=== PATIENT | female | born 1960 | race Caucasian/White ===

== ENCOUNTER 2023-08-08 17:31 | Inpatient (IN) | payer BC, SELFPAY ==
[2023-08-08] VITALS (8 sets, daily range): BP systolic 126–153; BP diastolic 65–81; BMI 34.1; BMI 33.3
[2023-08-08] MEDS: TYLENOL 650 MG PO ×3 (11:30→20:24)
[2023-08-08 12:17] LABS: % Basophils 0.4 % (0-2); % Immature Granulocytes 0.3 % (0-0.5); % Lymphocytes 8.9 % (20.5-51.1); % Monocytes 6.7 % (1.7-9.3); % Neutrophils 83.7 % (42.2-75.2); Absolute Basophils 0.1 10^3/uL (0-0.2); Absolute Lymphocytes 1.1 10^3/uL (1.2-3.4); Absolute Monocytes 0.8 10^3/uL (0.1-0.6); Absolute Neutrophils 10.2 10^3/uL (1.4-6.5); Hematocrit 40.6 % (37.0-47.0); Hemoglobin 13.7 g/dL (12.0-16.0); Mean Corp Hgb Conc. 33.7 g/dL (33.0-37.0); Mean Corpuscular Hgb 31.6 pg (27.0-31.0); Mean Corpuscular Volume 93.8 fL (81.0-99.0); Mean Platelet Volume 9.3 fL (7.4-10.4); Nucleated Red Blood Cells % 0 %; Platelet Count 299 10^3/uL (130-400); Red Blood Cell Count 4.33 10^6/uL (4.20-5.40); Red Cell Dist. Width 12.2 % (11.5-14.5); White Blood Cell Count 12.2 10^3/uL (4.8-10.8)
[2023-08-08 12:22] LABS: Lactic Acid 1.5 mmol/L (0.7-2.0)
[2023-08-08 12:28] LABS: ALT (SGPT) 21 U/L (0-35); AST (SGOT) 21 U/L (14-36); Albumin 4.2 g/dl (3.5-5.0); Alkaline Phosphatase 99 U/L (38-126); Blood Urea Nitrogen 11 mg/dl (7-17); Calcium 9.2 mg/dl (8.4-10.2); Carbon Dioxide 25 mmol/L (22-30); Chloride 104 mmol/L (98-107); Glucose 141 mg/dl (70-99); Sodium 135 mmol/L (135-145); Total Protein 6.8 g/dl (6.3-8.2); eGFR > 60.00
--- NOTE | 2023-08-08 14:55 | ED.GENMED ---
History of Present Illness
General
Chief Complaint: Fever
Source: patient
Exam Limitations: none
Time Seen by Provider: 08/08/23 14:27
Nursing documentation reviewed up to this point in time: agreed with
Travel History
Have you had any contact with someone who has COVID-19?: No
Do you have any symptoms of coronavirus? Fever > 100 degrees, chills, cough, shortness of breath, sore throat, loss of taste or smell, muscle aches, or headache?: No
History of Present Illness
History of Present Illness:
Patient is a 63-year-old female presents to the ER for evaluation. Patient started with left groin pain yesterday and woke up in the middle of the night with chills and a temperature of 104. She noticed redness to the area this morning. She was
seen by her family doctor and recommended to come to the ER for cellulitis. Patient presents to triage with a temperature 103.1.
Patient denies any other symptoms denies cough , runny nose sore throat. Patient is not a diabetic.
Past History
Past History
ED Past Medical History: HTN, Hypercholesterolemia and Hypothyroidism
ED Past Surgical History: Orthopedic (Bilateral knee's replaced), Tonsilectomy (and adnoids) and Other (Gastric Bypass)
Social History
Tobacco: Non-smoker
Alcohol: None
Personal:
Living: with family
Review of Systems
Review of Systems
Allergies reviewed?: Yes
All Other Systems: ROS reviewed and negative except as documented in HPI and ROS
Constitutional: Reports no symptoms and fever
Respiratory: Reports no symptoms
Cardiac: Reports no symptoms
Musculoskeletal: Reports other (left groin redness /pain )
Skin: Reports other (see above )
Psychiatric: Reports no symptoms
Phy Exam
General Physical Exam
General Presentation: no apparent distress
General age: appears stated age
General Skin: warm and dry
General Habitus: elderly
General Mental: alert
General Hydration: appears well hydrated
Cardiovascular Exam
Cardiovascular Exam: regular rate/rhythm, no murmur and normal peripheral pulses
Neurological Exam
Neurological Exam: alert and oriented x3
Musculoskeletal Exam
Musculoskeletal Exam: full ROM
Skin Exam
Skin Exam: normal color and warm/dry
Course
Orders/Labs/Results
Orders:
Orders
08/08/23 11:28
Acetaminophen [Tylenol] 650 mg .ROUTE .STK-MED ONE
08/08/23 11:46
Complete Blood Count/With Diff Urgent
Comprehensive Metabolic Panel Urgent
Lactic Acid Q4H
Comment: ON ICE, CANCEL 2ND ORDER IF FIRST LACTIC ACID LEVEL <2
Blood Culture Q30M
CODEY Source: Blood/Venous
Specimen Description:
Comment: FROM 2 SEPARATE SITES
Blood Culture Q30M
CODEY Source: Blood/Venous
Specimen Description:
Comment: FROM 2 SEPARATE SITES
Abnormal Lab Results
08/08/23
11:46
WBC 12.2 H 10^3/uL
(4.8-10.8)
MCH 31.6 H pg
(27.0-31.0)
Absolute Neuts (auto) 10.2 H 10^3/uL
(1.4-6.5)
Absolute Lymphs (auto) 1.1 L 10^3/uL
(1.2-3.4)
Absolute Monos (auto) 0.8 H 10^3/uL
(0.1-0.6)
Neutrophils % 83.7 H %
(42.2-75.2)
Lymphocytes % 8.9 L %
(20.5-51.1)
Glucose 141 H mg/dl
(70-99)
08/08/23 11:46
08/08/23 11:46
Vital Signs
Initial and Last Documented VS:
Initial Vital Signs
Temp Pulse Resp Pulse Ox
103.1 F H 75 16 98
08/08/23 11:21 08/08/23 11:21 08/08/23 11:21 08/08/23 11:21
Last Documented Vital Signs
Temp Pulse Resp BP Pulse Ox
103.1 F H 75 16 145/65 97
08/08/23 11:21 08/08/23 11:21 08/08/23 11:21 08/08/23 12:57 08/08/23 13:00
Childcare Attendant consulted with Physician
Childcare Attendant consulted with physician?: Yes
Name of Physician Consulted: [email or web address]
MDM/Problems Addressed
Differential Diagnosis Includes:
Not limited to cellulitis, abscess
MDM/Problems Addressed:
Symptoms are consistent with cellulitis. With rapid progression of symptoms(patient noticed pain yesterday followed by high fever today) will admit. Patient presents with a temperature of 103.1 here in the ER white count elevated 12. 2. lactic
1.5.
*Pulse Oximetry
Patient hypoxic: no
*Critical Care Note
Total Time (30-74mins, 75-104mins- exclusive of procedures): Not Applicable
ED Attending Note
-
Portions of this chart may have been created with voice recognition software.� Occasional wrong word or��sound alike� substitutions may have occurred due to the inherent limitations of voice recognition software.
Discharge Plan
Departure
Patient Disposition: Admit
Date of Disposition: 08/08/23
Time of Disposition: 15:19
Admit to: Med/Surg
Admit to doctor: cellulitis
Presentation/result/management discussed w/ accepting MD/DO: Hospitalist
Patient with high blood pressure during this ER visit?: Yes
Condition: Fair
Covid-19: Not Applicable
Discharge Problem:
Cellulitis of left thigh
Prescriptions:
No Action
cephalexin 500 MG capsule
500 mg PO QID Qty: 28 0RF
cephalexin 500 MG capsule
500 mg PO QID Qty: 39 0RF
Referrals:
Burak Quiroz MD [Family Provider] -
Interventions
Interventions:
*Risk Screen - Suicide Last Done: 08/08/23 13:03
*General Assessment Last Done: 08/08/23 13:03
*Neglect/Abuse Screening Last Done: 08/08/23 13:03
ED- Fall Risk Assessment Last Done: 08/08/23 13:08
*ED COVID-19 Vaccine History Last Done: 08/08/23 13:08
ED- Neurological Assessment Last Done: 08/08/23 13:03
ED-Skin Assessment Last Done: 08/08/23 13:03
[2023-08-08] MEDS: MOTRIN 600 MG PO (15:18)
[2023-08-08] MEDS: ANCEF 5 IV ×2 (15:52→16:36)
--- NOTE | 2023-08-08 16:12 | HPS.HSE ---
Addendum entered and electronically signed by Dilan Saha MD 08/08/23 18:18:
I saw and examined the patient.
The BUSINESS ANALYTICS SPECIALIST or PA's note was reviewed and I agree with the note.
Comment:
63F Obesity HTN HLD Hypothyroidism recurrent cellulitis here with new onset Lt thigh erythema tenderness pain near groin with associate high fever night sweats/chills 1 day duration referred to ED for evaluation by primary care provider. Possible
sepsis with fever 103.1 mild leukocytosis 12.2 Denies nausea vomiting diarrhea constipation dysuria sob coughing sneezing recent insect bites or trauma.
Physical Exam
General:�appears comfortable at rest
HEENT:�Anicteric and Moist mucous membranes
Respiratory:�Clear and Non Labored Respirations
Cardiac:�S1/S2 and Regular Rhythm
GI:�Soft and Non Tender
Musculoskeletal:�No Clubbing, No Cyanosis and No Edema
Skin:�erythema upper left thigh near groin area tender no fluctuance noted
Neuro:�AOx3
Psych:�Calm
#Sepsis (fever leukocytosis) Cellulitis no lactic acidosis or hypotension
#High grade fever
#HTN
#HLD
#Hypothyroidism
Tylenol prn
Cooling blanket if necessary
Morphine prn pain control
follow cultures
empiric vanc cefazolin
ID eval
check CT LLE w/ IV contrast
Original Note:
Family Physician
-
Family Physician: Burak Quiroz
Chief Complaint
-
Fever with left upper thigh redness
History of Present Illness
Patient is 63-year-old female past medical history of hypertension, dyslipidemia, hypothyroidism and recurrent cellulitis who presents with fever and redness of the left upper thigh. Patient notes yesterday she developed pain in the left upper
thigh/groin area. Yesterday she did not note any redness. However, last evening she had significant sweats and chills which kept her up most of the night. This morning she noted redness of the left upper thigh which prompted her to see her
primary care provider this morning. At her PCPs office she was noted to have fever of 104 �F, and he sent her to the emergency department for evaluation. Patient reports about 3�4 episodes of cellulitis a year. She admits to prior hospitalization
due to cellulitis, but notes last hospitalization was over 10 years ago.
Medical History
Past Medical History
Past Medical History: Reports Other
Additional Past Medical History:
Essential Hypertension
Dyslipidemia
Hypothyroidism
Depression
Past Surgical History: Reports Other
Additional Past Surgical History:
Tonsillectomy
Gastric Bypass
Bilateral Knee Replacements
Social History
Tobacco: Non-smoker
Alcohol: None
Drug: None
Personal:
Family History
Family History: Not pertinent
Allergies / Home Medications
Allergies reflects when Allergies were last updated in [facility].
Home Medications with original date entered in [facility]
Allergy/Medication List:
Allergies
Allergy/AdvReac Type Severity Reaction Status Date / Time
No Known Allergies Allergy Verified 08/08/23 11:21
Home Medications
atorvastatin 20 mg tablet 20 mg PO DAILY 08/08/23
citalopram 20 mg tablet 20 mg PO DAILY 08/08/23
levothyroxine 200 mcg tablet 200 mcg PO DAILY 08/08/23
multivitamin 1 tab PO DAILY 08/08/23
valsartan 160 mg-hydrochlorothiazide 25 mg tablet 1 tab PO DAILY 08/08/23
Review of Systems
-
A 12 point ROS was completed and negative except as noted: Yes
Constitutional: Reports Fever and Chills
Respiratory: Denies Cough or Trouble Breathing
Abdomen/GI: Denies Abdominal Pain, Nausea, Vomiting or Diarrhea
Skin: Reports See HPI
Physical Exam
Vital Signs
Vital Signs
Temp Pulse Resp BP Pulse Ox
102.8 F H 75 16 137/68 95
08/08/23 15:20 08/08/23 11:21 08/08/23 11:21 08/08/23 15:00 08/08/23 16:00
Physical Exam
General: Comfortable and Conversant
HEENT: Anicteric and Moist mucous membranes
Respiratory: Clear and Non Labored Respirations
Cardiac: S1/S2 and Regular Rhythm
GI: Soft and Non Tender
Rectal: Deferred by Provider
Musculoskeletal: No Clubbing, No Cyanosis and No Edema
Skin: Warm, Dry and Other (Area of erythema noted in the left upper thigh which is warm to touch; No fluctuance noted )
Neuro: Awake, Alert and Nonfocal/grossly intact
Psych: Calm
Laboratory Results
-
08/08/23 11:46
08/08/23 11:46
Laboratory Results
Lactic Acid Cancelled 08/08/23 15:30
Total Bilirubin 1.0 mg/dl (0.2-1.3) 08/08/23 11:46
AST 21 U/L (14-36) 08/08/23 11:46
ALT 21 U/L (0-35) 08/08/23 11:46
Alkaline Phosphatase 99 U/L (38-126) 08/08/23 11:46
Data Reviewed
-
Lab Data: Labs Reviewed by me
Impression/Plan
-
Sepsis secondary to Left Upper Thigh Cellulitis
-Consult Infectious Disease
-Check Lower Ext CT
-Continue Ancef
-Add Vancomycin - Check MRSA screen
-Await blood cultures
Essential Hypertension
-Continue valsartan
-Hold HCTZ in setting of sepsis
Dyslipidemia
-Continue atorvastatin
Hypothyroidism
-Continue levothyroxine
Depression
-Continue citalopram
DVT proph: Lovenox
Code Status: Full Code
[2023-08-08] MEDS: MORPHINE SULFATE 2 MG IV ×2 (16:26→22:04)
--- NOTE | 2023-08-08 19:21 | CON.ID ---
Consultation
-
Date/Time Consultation Requested: 08/08/2023 1557
Date/Time Consultation Performed: 08/08/2023 1900
Requesting Provider: Ila Hernandez
Performing Provider: Dr. Padilla
Reason for Consultation: left Inguinal cellulitis
Chief Complaint / Past History
History of Present Illness
Maricel Barbosa is a 63-year-old female being evaluated at the request of Ila Hernandez regarding left inguinal cellulitis. History is obtained from chart review, along with patient interview. The patient has a significant past medical history
of obesity and hypertension and reports that she was in her usual state of health until yesterday morning when she developed acute onset of left groin pain / left proximal anterior medial thigh pain. Over the next 24 hours the area developed
progressive erythema. She reached out to her PCP, and he referred her to the emergency room for further evaluation. She notes that she developed a fever to 105 at home, and she was found to have a temperature to 103.1 here in the ER.
At this time she notes ongoing discomfort in the area, probably due to the erythema has gone down to some degree. She denies any trauma to the area. She denies any redness or pain more distal on the left leg or on the right leg. She denies any
abdominal pain.
Past History
Additional Past Medical History:
HTN
Dyslipidemia
Hypothyroidism
Additional Past Surgical History:
Bilateral knee replacement
Gastric bypass
Breast reduction
Allergy History:
No Known Allergies Allergy (Verified 08/08/23 11:21)
Medications Reviewed: Yes
Current Antibiotics:
Cefazolin
Social History
Tobacco: Non-Smoker
Alcohol: None
Drug: None
Personal:
Living: With Family
Employment: Employed
Family History
Family History: Not Pertinent
Review of Systems
Vital Signs
Temp Pulse Resp BP Pulse Ox
100.1 F 54 16 127/76 95
08/08/23 17:30 08/08/23 16:29 08/08/23 16:29 08/08/23 16:30 08/08/23 16:45
Physical Exam
Physical Exam
Constitutional: No Acute Distress, Comfortable and Non-toxic
Head: Normocephalic
Eyes: Pupils Equal, Pupils Round, No Conjunctival Hemorrhage and Sclera Anicteric
Oral: No Thrush and No Ulcers
Cardiovascular: Regular Rate and S1/S2; Negative S3/S4 or Murmur
Pulmonary: Clear; Negative Wheezes, Rales or Rhonchi
Gastrointestinal: Soft, Non Tender, Non Distended and Normal Bowel Sounds
Extremities: Edema and Other (Left proximal anterior thigh with erythema. A more central area of induration palpated which was quite tender to touch.); Negative Cyanosis
Musculoskeletal: Negative Joint Swelling or Joint Effusion
Skin: Warm and Dry; Negative Rash or Jaundice
Neurological: Awake, Alert and Oriented
Psychological: Calm
Lab / Diagnostic Study Results
08/08/23 11:46
08/08/23 11:46
Abs Immat Gran (auto) 0.0 10^3/uL (0-0.05) 08/08/23 11:46
Absolute Neuts (auto) 10.2 10^3/uL (1.4-6.5) H 08/08/23 11:46
Absolute Lymphs (auto) 1.1 10^3/uL (1.2-3.4) L 08/08/23 11:46
Absolute Monos (auto) 0.8 10^3/uL (0.1-0.6) H 08/08/23 11:46
Absolute Basos (auto) 0.1 10^3/uL (0-0.2) 08/08/23 11:46
Immature Gran % 0.3 % (0-0.5) 08/08/23 11:46
Neutrophils % 83.7 % (42.2-75.2) H 08/08/23 11:46
Lymphocytes % 8.9 % (20.5-51.1) L 08/08/23 11:46
Monocytes % 6.7 % (1.7-9.3) 08/08/23 11:46
Eosinophils % 0.0 % (0-6) 08/08/23 11:46
Basophils % 0.4 % (0-2) 08/08/23 11:46
Lactic Acid Cancelled 08/08/23 15:30
Microbiology Results
Micro:
08/08/23 16:11 MRSA Screen - Pending
Nose
08/08/23 11:46 Blood Culture - Pending
Blood/Venous
08/08/23 11:46 Blood Culture - Pending
Blood/Venous
Imaging:
08/08/2023 CT left lower extremity: Official report pending. Subcutaneous inflammation noted proximal anterior thigh. Question subcutaneous nodule versus inflamed lymph node.
Assessment / Plan
Left lower extremity cellulitis
Fever
Leukocytosis
HTN
Dyslipidemia
Hypothyroidism
Recommendations:
Continue with cefazolin.
Monitor pending blood cultures.
Monitor white count and temperature curve.
K-pad to the area.
Monitor for clinical improvement.
Care Review
Plan reviewed with: Physician (Hospitalist Service)
[2023-08-08] MEDS: NSS 1000 IV (20:24)
[2023-08-08] MEDS: LOVENOX 40 MG SC (20:24)
--- NOTE | 2023-08-08 21:00 | PTCARENOTE ---
PT IS AAOX3, pt reports left upper thigh/groin area pain is 7/10. its warm, red, edema, and tender to touch. marked cellulitis w/ pen. pt is given prn pain meds- see SEP. pt is oriented to room w/ call morales in reach.
--- NOTE | 2023-08-08 21:02 | PHA.VAN.IN ---
Assessment
- Assessment
Renal Function: Appears similar to baseline
Concomitant Antimicrobials: ANCEF
- Previous Dosing Experience
Previous Regimen: NONE
AUC Dosing Plan
- Dosing Variables
Dosing Weight (kg): 93.6
Dosing CrCl (ml/min): 100
Vd coefficient (L/kg): 0.6
- Empiric Dosing
Initial / Loading Dose: 2GM
Maintenance Regimen: 1250MG IV Q12H
Estimated AUC (mcg*h/mL): 543
Estimated Peak (mcg*h/mL): 34.3
Estimated Trough (mcg/ml): 13.7
Estimated Half Life (H): 7.9
Pharmacokinetics Vancomycin I
- -
Patient Age: 63
Patient Sex: Female
Vancomycin Day #: 1
Indication: Skin And Soft Tissue (THIGH CELLULITIS/SEPSIS)
Requesting Provider: CARLA
Height / Weight:
Height 5 ft 6 in
Actual Weight 93.638 kg
Pertinent Past Medical History: RECURRENT CELLULITIS
- Vital Signs / Lab Results
Temp Pulse Resp BP Pulse Ox
98.0 F 70 16 126/81 97
08/08/23 20:04 08/08/23 20:04 08/08/23 20:04 08/08/23 20:04 08/08/23 20:04
Lab Results - Hematology
08/08/23
11:46
WBC 12.2 H
Lab Results - Chemistry
08/08/23
11:46
BUN 11
Creatinine 0.6
Albumin 4.2
08/08/23 08/08/23
11:46 15:30
Lactic Acid 1.5 Cancelled
[2023-08-08] MEDS: VANCOCIN 540 MG IV (21:53)
[2023-08-08] MEDS: ANCEF 10 IV (23:27)
[2023-08-09] MEDS: MORPHINE SULFATE 2 MG IV (02:50)
[2023-08-09] MEDS: TYLENOL 650 MG PO ×2 (03:32→11:46)
[2023-08-09] MEDS: VANCOCIN 275 MG IV ×2 (05:09→18:13)
[2023-08-09] MEDS: NSS 1000 IV (05:09)
[2023-08-09] MEDS: SYNTHROID 200 MCG PO (05:10)
[2023-08-09 06:40] LABS: Hematocrit 33.9 % (37.0-47.0); Hemoglobin 11.6 g/dL (12.0-16.0); Mean Corp Hgb Conc. 34.2 g/dL (33.0-37.0); Mean Corpuscular Hgb 31.5 pg (27.0-31.0); Mean Corpuscular Volume 92.1 fL (81.0-99.0); Platelet Count 225 10^3/uL (130-400); Red Blood Cell Count 3.68 10^6/uL (4.20-5.40); Red Cell Dist. Width 12.5 % (11.5-14.5); White Blood Cell Count 13.7 10^3/uL (4.8-10.8)
[2023-08-09 07:00] VITALS: BP 147/82
[2023-08-09 07:14] LABS: Blood Urea Nitrogen 12 mg/dl (7-17); Calcium 8.4 mg/dl (8.4-10.2); Carbon Dioxide 21 mmol/L (22-30); Chloride 104 mmol/L (98-107); Estimated Creatinine Clearance 109 ml/min; Glucose 113 mg/dl (70-99); Potassium 3.3 mmol/L (3.5-5.1); Sodium 134 mmol/L (135-145); eGFR > 60.00
--- NOTE | 2023-08-09 07:42 | W.PN.HOSP.TC ---
Today's Communication/Plan
-
antibiotics
fever control
blood pressure control
fall precautions
PT
Assessment / Plan
Assessment / Plan
Physical Exam
General:�appears comfortable at rest
HEENT:�Anicteric and Moist mucous membranes
Respiratory:�Clear and Non Labored Respirations
Cardiac:�S1/S2 and Regular Rhythm
GI:�Soft and Non Tender
Musculoskeletal:�No Clubbing, No Cyanosis and No Edema
Skin:�erythema upper left thigh near groin area tender no fluctuance noted
Neuro:�AOx3
Psych:�Calm
63F Obesity HTN HLD Hypothyroidism recurrent cellulitis here with new onset Lt thigh erythema tenderness pain near groin with associate high fever night sweats/chills 1 day duration referred to ED for evaluation by primary care provider.� Possible
sepsis with fever 103.1 mild leukocytosis 12.2� Denies nausea vomiting diarrhea constipation dysuria sob coughing sneezing recent insect bites or trauma.�
Sepsis secondary to Left Upper Thigh Cellulitis
Fever
-Consult Infectious Disease appreciated azithromycin added, bartonella serology pending, patient lives with 3 cats
-Left Lower Ext CT, Groin US appreciated
-Continue Ancef Vancomycin - Check MRSA screen
-follow blood cultures
-Tylenol prn, ice packs, cooling blanket if necessary
Essential Hypertension
-Continue valsartan
-Hold HCTZ
Dyslipidemia
-Continue atorvastatin
Hypothyroidism
-Continue levothyroxine
Depression
-Continue citalopram
DVT proph: Lovenox
Code Status: Full Code
Fall Precautions
PT eval
I spent a total of 55 minutes with the patient or on the floor. More than 50% of this time involved counseling and coordination of care.
Anticipated Discharge: 24 - 48 hours
Subjective/Interval History
-
Date of Service: August 09, 2023
General malaise fever continues to endorse tenderness left upper thigh groin area.
Objective Data
-
Labs:
Laboratory Results
08/09/23
06:31
WBC 13.7 H
Hgb 11.6 L
Hct 33.9 L
Plt Count 225 D
Sodium 134 L
Potassium 3.3 L
Chloride 104
Carbon Dioxide 21 L
BUN 12
Creatinine 0.5 L
Glucose 113 H
Calcium 8.4
Vital Signs:
Vital Signs
Temp Pulse Resp BP Pulse Ox
99.8 F 70 16 153/75 96
08/09/23 05:15 08/08/23 23:00 08/08/23 23:00 08/08/23 23:00 08/08/23 23:52
I&O
08/08/23 08/09/23 08/10/23
06:59 06:59 06:59
Intake Total 3455 / 3455
Balance 3455 / 3455
[2023-08-09] MEDS: CELEXA 20 MG PO (08:10)
[2023-08-09] MEDS: LIPITOR 20 MG PO (08:10)
[2023-08-09] MEDS: DIOVAN 160 MG PO (08:10)
[2023-08-09] MEDS: ANCEF 10 IV ×2 (08:11→16:38)
--- NOTE | 2023-08-09 08:19 | PTCARENOTE ---
PT AOX3, PAIN TO L GROIN 08/23 AT THIS TIME. RE, WARM, MARKED. C/O LEFT HEEL PAIN, FOAM PLACED AND HEELS ELEVATED. DOES NOT WANT PAIN MED- . PT DENIES SOB, N/V. RESTING, CALL BRICE IN REACH
--- NOTE | 2023-08-09 08:43 | PHA.VAN.FU ---
Vancomycin Assessment / Plan
- Assessment
Renal Function: Stable
WBC's are: Trending Up
In the past 24 hrs, patient has been: Febrile (102.4F)
Concomitant Antimicrobials: ancef
- Dosing Plan
Continue: 1250mg q12h
- Monitoring Plan
No level(s) ordered at this time: consider for tomorrow
- Follow Up
Pharmacy will continue to follow.
Vancomycin Follow UP
- -
Patient Age: 63
Patient Sex: Female
Vancomycin Day #: 2
Indication: Skin And Soft Tissue (THIGH CELLULITIS/SEPSIS)
Requesting Provider: CARLA
Height / Weight:
Height 5 ft 6 in
Actual Weight 93.638 kg
Pertinent Past Medical History: RECURRENT CELLULITIS
- Vital Signs / Lab Results
Temp Pulse Resp BP Pulse Ox
98.7 F 77 18 147/82 96
08/09/23 07:00 08/09/23 07:00 08/09/23 07:00 08/09/23 07:00 08/09/23 07:00
Lab Results - Hematology
08/08/23 08/09/23
11:46 06:31
WBC 12.2 H 13.7 H
Lab Results - Chemistry
08/08/23 08/09/23
11:46 06:31
BUN 11 12
Creatinine 0.6 0.5 L
Estimated Creat Clear 109
Albumin 4.2
08/08/23 08/08/23
11:46 15:30
Lactic Acid 1.5 Cancelled
[2023-08-09] MEDS: KCL 40 MEQ PO (09:53)
--- NOTE | 2023-08-09 12:27 | W.PN.ID1 ---
Date of Service
Date of Service: August 09, 2023
Today's Communication
Continue antibiotics. See below�
Assessment / Plan
Left lower extremity cellulitis
Fever
Leukocytosis
Focal lymphadenopathy
HTN
Dyslipidemia
Hypothyroidism
Recommendations:
Patient reports that she has 3 cats at home, raising the possibility of Bartonella infection.
Will add Azithromycin 500 mg p.o. daily for 5 days. Will get baseline EKG as patient is also on citalopram.
Check Bartonella serology.
Continue with cefazolin.
Monitor pending blood cultures.
Monitor white count and temperature curve.
K-pad to the area.
Monitor for clinical improvement.
Chief Complaint
-: Cellulitis
Subjective / Review of Systems
Patient seen and examined. Erythema of the left proximal thigh ongoing.
Vital Signs / Physical Exam
Vital Signs
Vital Signs
Temp Pulse Resp BP Pulse Ox
98.7 F 77 18 147/82 96
08/09/23 07:00 08/09/23 07:00 08/09/23 07:00 08/09/23 07:00 08/09/23 07:00
Physical Exam
Constitutional: No Acute Distress, Comfortable and Non-toxic
Eyes: Sclera Anicteric
Pulmonary: Non Labored
Extremities: Other (Left proximal thigh with ongoing erythema. Palpable lymphadenopathy. Tenderness ongoing.)
Neurological: Awake and Alert
Psychological: Calm
Objective Data
Lab Data
Lab Results
08/09/23 06:31
08/09/23 06:31
Estimated Creat Clear 109 ml/min 08/09/23 06:31
Lactic Acid Cancelled 08/08/23 15:30
Total Bilirubin 1.0 mg/dl (0.2-1.3) 08/08/23 11:46
AST 21 U/L (14-36) 08/08/23 11:46
ALT 21 U/L (0-35) 08/08/23 11:46
Alkaline Phosphatase 99 U/L (38-126) 08/08/23 11:46
Most recent labs reviewed.
Micro Results:
08/08/23 11:46 Blood Culture - Preliminary
Blood/Venous No Growth in 24 hours- Final report to follow
08/08/23 11:46 Blood Culture - Preliminary
Blood/Venous No Growth in 24 hours- Final report to follow
08/08/23 16:11 MRSA Screen - Pending
Nose
Imaging:
08/08/2023 CT left lower extremity: Moderate increased density in the subcutaneous tissues of the anterior medial proximal left thigh and groin area. No focal fluid collection to suggest abscess. At least 3 moderate-sized lymph nodes noted. All
have a normal rim and fatty center. The largest measures 4 cm in maximum dimension.
--- NOTE | 2023-08-09 12:46 | CM ---
Patient seen bedside, initial assessment. Patient reports she lives with her and daughters in a ranch style home, denies DME. Patient reports she has had VN in the past, unsure with who, denies SNF. Patient confirms PCP Dr. Quiroz or anyone
through [facility], pharmacy [facility] [place]. CM will continue to follow for discharge planning, watch for PT/OT eval.
Plan; home no needs vs VN.
[2023-08-09] MEDS: ZITHROMAX 500 MG PO (12:51)
[2023-08-09] MEDS: MOTRIN 400 MG PO (12:51)
[2023-08-09 13:00] VITALS: BP 149/68
[2023-08-09 15:00] VITALS: BP 123/62
--- NOTE | 2023-08-09 16:16 | PTCARENOTE ---
Assumed care of pt from previous nurse. pt with mild discomfort to left groin, tolerable. Pt fever treated with tylenol and motrin, fan and ice packs with positive results. Pt call morales is within reach, pt rings ann. will cont to monitor.
[2023-08-09] MEDS: LOVENOX 40 MG SC (18:13)
[2023-08-09 19:38] VITALS: BP 142/61
[2023-08-09 23:21] VITALS: BP 151/74
[2023-08-10] MEDS: ANCEF 10 IV ×4 (00:03→23:42)
[2023-08-10] MEDS: TYLENOL 650 MG PO ×3 (01:10→23:42)
[2023-08-10 03:51] VITALS: BMI 33.3
[2023-08-10] MEDS: VANCOCIN 275 MG IV (05:18)
[2023-08-10] MEDS: SYNTHROID 200 MCG PO (06:04)
[2023-08-10 06:32] LABS: Hematocrit 36.1 % (37.0-47.0); Mean Corp Hgb Conc. 33.2 g/dL (33.0-37.0); Mean Corpuscular Hgb 31.7 pg (27.0-31.0); Mean Corpuscular Volume 95.3 fL (81.0-99.0); Mean Platelet Volume 9.7 fL (7.4-10.4); Platelet Count 226 10^3/uL (130-400); Red Blood Cell Count 3.79 10^6/uL (4.20-5.40); Red Cell Dist. Width 12.4 % (11.5-14.5)
[2023-08-10 06:56] LABS: Blood Urea Nitrogen 9 mg/dl (7-17); Calcium 8.8 mg/dl (8.4-10.2); Carbon Dioxide 20 mmol/L (22-30); Chloride 107 mmol/L (98-107); Estimated Creatinine Clearance 109 ml/min; Glucose 120 mg/dl (70-99); Magnesium 2.1 mg/dl (1.6-2.3); Potassium 3.5 mmol/L (3.5-5.1); Sodium 135 mmol/L (135-145); eGFR > 60.00
[2023-08-10 07:00] VITALS: BP 148/85
--- NOTE | 2023-08-10 07:27 | W.PN.HOSP.TC ---
Today's Communication/Plan
-
cont abx cefazolin azithromycin
discontinue vancomycin
Fever control tylenol ibuprofen ice packs, consider cooling blanket if refractory
follow cultures, serology
Assessment / Plan
Assessment / Plan
Physical Exam
General:�appears comfortable at rest
HEENT:�Anicteric and Moist mucous membranes
Respiratory:�Clear and Non Labored Respirations
Cardiac:�S1/S2 and Regular Rhythm
GI:�Soft and Non Tender
Musculoskeletal:�No Clubbing, No Cyanosis and No Edema
Skin:�erythema upper left thigh near groin area tender no fluctuance noted, light erythema RUE where Vancomycin infiltrated will cont to monitor
Neuro:�AOx3
Psych:�Calm
63F Obesity HTN HLD Hypothyroidism recurrent cellulitis here with new onset Lt thigh erythema tenderness pain near groin with associate high fever night sweats/chills 1 day duration referred to ED for evaluation by primary care provider.� Possible
sepsis with fever 103.1 mild leukocytosis 12.2� Denies nausea vomiting diarrhea constipation dysuria sob coughing sneezing recent insect bites or trauma.�
Sepsis secondary to Left Upper Thigh Cellulitis
Fever
-Consult Infectious Disease appreciated azithromycin added, bartonella serology pending, patient lives with 3 cats though patient denies every being scratched by her cats and also reports that they are all de-clawed (patient upset at the notion that
her cats may have caused her illness, assured that this was only a theory not a certainty at this time)
-Left Lower Ext CT, Groin US appreciated cellulitis with associated lymphadenopathy
-Continue Ancef, MRSA screen neg Vancomycin discontinued
-follow blood cultures NGTD
-Tylenol prn, ice packs, cooling blanket if necessary
Vancomycin infiltration right arm prior to discontinuation 08/10
light rash swelling noted in area s/p Hylenex once administered
monitor
Essential Hypertension
-Continue valsartan
-Hold HCTZ given concern sepsis
Dyslipidemia
-Continue atorvastatin
Hypothyroidism
-Continue levothyroxine
Depression
-Continue citalopram
DVT proph: Lovenox
Gi PPx Protonix
Code Status: Full Code
Fall Precautions
PT/OT eval appreciated no needs
I spent a total of 55 minutes with the patient or on the floor. More than 50% of this time involved counseling and coordination of care.
Anticipated Discharge: 24 - 48 hours
Subjective/Interval History
-
Date of Service: August 10, 2023
Continues to spike fevers though fewer and farther between, manageable with prn Tylenol Ibuprofen Ice packs. Erythema left thigh groin area decreased from demarcation
Objective Data
-
Labs:
Laboratory Results
08/10/23
06:21
WBC 14.0 H
Hgb 12.0
Hct 36.1 L
Plt Count 226
Sodium 135
Potassium 3.5
Chloride 107
Carbon Dioxide 20 L
BUN 9
Creatinine 0.4 L
Glucose 120 H
Calcium 8.8
Vital Signs:
Vital Signs
Temp Pulse Resp BP Pulse Ox
99.2 F 80 14 151/74 95
08/10/23 02:00 08/09/23 23:21 08/09/23 23:21 08/09/23 23:21 08/09/23 23:21
I&O
08/09/23 08/10/23 08/11/23
06:59 06:59 06:59
Intake Total 3455 / 3455
Balance 3455 / 3455
--- NOTE | 2023-08-10 07:36 | PTCARENOTE ---
Notified provider of patient's infiltrated vanco in her RAC, see MAR
--- NOTE | 2023-08-10 07:38 | VATNOTE ---
on rounds noted right AC iv site with vanco infiltrate. Warm compress applied. Hyalouronidase ordered by MD per policy. Will monitor closely. Primary RN made aware.
[2023-08-10] MEDS: HYLENEX 30 UNITS SC ×5 (08:00)
[2023-08-10] MEDS: CELEXA 20 MG PO (09:59)
[2023-08-10] MEDS: DIOVAN 160 MG PO (09:59)
[2023-08-10] MEDS: ZITHROMAX 500 MG PO (09:59)
[2023-08-10] MEDS: LIPITOR 20 MG PO (10:00)
--- NOTE | 2023-08-10 11:07 | PTCARENOTE ---
Notified provider of patient's temperature. Approximately one hour after receiving Tylenol her oral reading is 101.1
[2023-08-10] MEDS: MOTRIN 400 MG PO (11:28)
[2023-08-10] MEDS: PROTONIX 40 MG PO (11:28)
--- NOTE | 2023-08-10 11:31 | PTCARENOTE ---
Applied ice packs to patient, given ibuprofen and protonix
[2023-08-10 15:00] VITALS: BP 131/57
[2023-08-10] MEDS: LOVENOX 40 MG SC (17:44)
[2023-08-10 23:00] VITALS: BP 154/77
[2023-08-11 02:33] VITALS: BP 161/80
[2023-08-11] MEDS: MOTRIN 400 MG PO (02:40)
[2023-08-11 03:00] VITALS: BP 161/80
[2023-08-11] MEDS: SYNTHROID 200 MCG PO (06:07)
[2023-08-11 07:40] VITALS: BP 152/79
[2023-08-11 07:57] LABS: Hemoglobin 11.1 g/dL (12.0-16.0); Mean Corp Hgb Conc. 33.6 g/dL (33.0-37.0); Mean Corpuscular Hgb 31.5 pg (27.0-31.0); Mean Corpuscular Volume 93.8 fL (81.0-99.0); Mean Platelet Volume 10.3 fL (7.4-10.4); Platelet Count 243 10^3/uL (130-400); Red Blood Cell Count 3.52 10^6/uL (4.20-5.40); Red Cell Dist. Width 12.5 % (11.5-14.5); White Blood Cell Count 10.5 10^3/uL (4.8-10.8)
[2023-08-11 08:35] LABS: Blood Urea Nitrogen 10 mg/dl (7-17); Calcium 8.9 mg/dl (8.4-10.2); Carbon Dioxide 20 mmol/L (22-30); Chloride 106 mmol/L (98-107); Estimated Creatinine Clearance 109 ml/min; Glucose 183 mg/dl (70-99); Phosphorus 3.5 mg/dl (2.5-4.5); Potassium 3.2 mmol/L (3.5-5.1); Sodium 137 mmol/L (135-145); eGFR > 60.00
[2023-08-11] MEDS: ANCEF 10 IV ×2 (08:37→15:14)
[2023-08-11] MEDS: ZITHROMAX 500 MG PO (08:38)
[2023-08-11] MEDS: PROTONIX 40 MG PO (08:39)
[2023-08-11] MEDS: DIOVAN 160 MG PO (08:39)
[2023-08-11] MEDS: CELEXA 20 MG PO (08:40)
[2023-08-11] MEDS: LIPITOR 20 MG PO (08:40)
--- NOTE | 2023-08-11 10:27 | VATNOTE ---
R AC area of infiltrate is improved. Pt states swelling has mostly gone away and area is not tender anymore. R arm is soft with minimal swelling. Will continue to monitor.
[2023-08-11] MEDS: KCL 40 MEQ PO (13:04)
--- NOTE | 2023-08-11 13:09 | W.PN.HOSP.TC ---
Today's Communication/Plan
-
cont abx
Assessment / Plan
Assessment / Plan
pt is a 63 year old female
Sepsis secondary to Left Upper Thigh Cellulitis (with fever)--apprec ID--cont ancef--Left Lower Ext CT, Groin US appreciated cellulitis with associated lymphadenopathy--follow cultures no growth to date and WBC WNL
Essential Hypertension--Continue valsartan--Hold HCTZ given concern sepsis
Dyslipidemia--Continue atorvastatin
Hypothyroidism--Continue levothyroxine
Depression--Continue citalopram
DVT proph: Lovenox
Code Status: Full Code
Anticipated Discharge: 24 - 48 hours
Subjective/Interval History
-
Date of Service: August 11, 2023
pt without c/o
Objective Data
-
Labs:
Laboratory Results
08/11/23
07:10
WBC 10.5
Hgb 11.1 L
Hct 33.0 L
Plt Count 243
Sodium 137
Potassium 3.2 L
Chloride 106
Carbon Dioxide 20 L
BUN 10
Creatinine 0.4 L
Glucose 183 H
Calcium 8.9
Vital Signs:
max temp for 24 hours
08/10/23
11:06
Temp 101.1 F H
Vital Signs
Temp Pulse Resp BP Pulse Ox
97.7 F 53 20 152/79 96
08/11/23 07:40 08/11/23 07:40 08/11/23 07:40 08/11/23 07:40 08/11/23 07:40
I&O
08/10/23 08/11/23 08/12/23
06:59 06:59 06:59
Intake Total 240 / 240
Balance 240 / 240
Review of Systems
-
All other systems: Reviewed and negative
Physical Exam
-
General: Well Developed, Well Nourished and No Apparent Distress
HEENT: Normocephalic and Atraumatic
Respiratory: Clear to Auscultation; Negative Wheezes or Rhonchi
Cardiac: Regular Rhythm and S1/S2; Negative Murmur
GI: Soft, Nontender, Nondistended and Normal Bowel Sounds
Musculoskeletal: No Clubbing, No Cyanosis and No Edema
Skin: Other (left groin with redness shrinking from outlined area--firmness but nothing focal to drain)
Neuro: Awake and Alert
Psych: Calm
--- NOTE | 2023-08-11 14:17 | PN.CDI ---
CDI
- -
CDI:
Physician Documentation Request
Admit Date: 08/08/23 17:31
Dear Doctor Yojana,
Patient admitted for sepsis.
Received 40 meq po KCL on 08/11 and on 08/09.
Potassium resulted as follows:
Laboratory Tests
08/09/23 08/10/23 08/11/23
06:31 06:21 07:10
Potassium 3.3 L 3.5 3.2 L
Based on the above, could you please provide a diagnosis that supports the above lab abnormalities and additional evaluation, monitoring and/or treatment rendered:
Hypokalemia
abnormal lab value clinically insignificant
Other
Use of terms such as suspected, likely, concern for, or probable (associated with a specific diagnosis that is being evaluated, monitored, or treated as if it exists) are acceptable and can be coded in the inpatient setting, when documented at the
time of discharge.
Thank you,
Leigh Atkinson RN, BSN
CDI Specialist
tiger text
Please use your independent medical judgment in providing your response.
--- NOTE | 2023-08-11 15:14 | W.PN.ID1 ---
Date of Service
Date of Service: August 11, 2023
Today's Communication
Continue antibiotics.
Assessment / Plan
Left lower extremity cellulitis
Suspected bartonellosis
Fever
Leukocytosis
Focal lymphadenopathy
HTN
Dyslipidemia
Hypothyroidism
Recommendations:
Continue Azithromycin.
Await Bartonella serology.
Continue with cefazolin.
Monitor temperature curve.
����������������������������������������������������������
Chief Complaint
-: Cellulitis
Subjective / Review of Systems
Patient seen and examined. Reports some decreased swelling in the left groin area, along with decreased tenderness.
Vital Signs / Physical Exam
Vital Signs
Vital Signs
Temp Pulse Resp BP Pulse Ox
97.7 F 53 20 152/79 96
08/11/23 07:40 08/11/23 07:40 08/11/23 07:40 08/11/23 07:40 08/11/23 07:40
Physical Exam
Constitutional: No Acute Distress, Comfortable and Non-toxic
Eyes: Sclera Anicteric
Pulmonary: Non Labored
Gastrointestinal: Non Distended
Extremities: Other (Left groin area with ongoing erythema, although slightly decreased in intensity today. Less tenderness of the lymph nodes.)
Neurological: Awake and Alert
Psychological: Calm
Objective Data
Lab Data
Lab Results
08/11/23 07:10
08/11/23 07:10
Estimated Creat Clear 109 ml/min 08/11/23 07:10
Lactic Acid Cancelled 08/08/23 15:30
Total Bilirubin 1.0 mg/dl (0.2-1.3) 08/08/23 11:46
AST 21 U/L (14-36) 08/08/23 11:46
ALT 21 U/L (0-35) 08/08/23 11:46
Alkaline Phosphatase 99 U/L (38-126) 08/08/23 11:46
Most recent labs reviewed.
Micro Results:
08/08/23 11:46 Blood Culture - Preliminary
Blood/Venous No Growth in 72 hours- Final report to follow
08/08/23 11:46 Blood Culture - Preliminary
Blood/Venous No Growth in 72 hours- Final report to follow
08/08/23 16:11 MRSA Screen - Final
Nose No Methicillin Resistant Staphylococcus aureus isolated.
Imaging:
08/08/2023 CT left lower extremity: Moderate increased density in the subcutaneous tissues of the anterior medial proximal left thigh and groin area. No focal fluid collection to suggest abscess. At least 3 moderate-sized lymph nodes noted. All
have a normal rim and fatty center. The largest measures 4 cm in maximum dimension.
--- NOTE | 2023-08-11 15:19 | CM ---
Patient seen at bedside, patient with no need concerns for discharge, Patient does not feel that she will need VN supports and anticipates no IV antibiotics. CM will continue to follow for discharge planning needs.
Plan home with no needs.
[2023-08-11 15:29] VITALS: BP 139/87
[2023-08-11] MEDS: LOVENOX 40 MG SC (17:04)
[2023-08-11 23:10] VITALS: BP 139/70
[2023-08-12] MEDS: ANCEF 10 IV ×4 (00:18→23:09)
[2023-08-12] MEDS: SYNTHROID 200 MCG PO (06:02)
[2023-08-12 07:30] VITALS: BP 158/74
[2023-08-12 07:35] LABS: Hematocrit 32.2 % (37.0-47.0); Hemoglobin 10.6 g/dL (12.0-16.0); Mean Corp Hgb Conc. 32.9 g/dL (33.0-37.0); Mean Corpuscular Hgb 31.5 pg (27.0-31.0); Mean Corpuscular Volume 95.5 fL (81.0-99.0); Mean Platelet Volume 9.6 fL (7.4-10.4); Platelet Count 298 10^3/uL (130-400); Red Blood Cell Count 3.37 10^6/uL (4.20-5.40); Red Cell Dist. Width 12.6 % (11.5-14.5); White Blood Cell Count 7.6 10^3/uL (4.8-10.8)
[2023-08-12] MEDS: PROTONIX 40 MG PO (08:14)
[2023-08-12] MEDS: ZITHROMAX 500 MG PO (08:14)
[2023-08-12] MEDS: CELEXA 20 MG PO (08:14)
[2023-08-12] MEDS: LIPITOR 20 MG PO (08:15)
[2023-08-12] MEDS: DIOVAN 160 MG PO (08:15)
[2023-08-12 08:48] LABS: Blood Urea Nitrogen 12 mg/dl (7-17); Calcium 8.7 mg/dl (8.4-10.2); Carbon Dioxide 24 mmol/L (22-30); Chloride 105 mmol/L (98-107); Estimated Creatinine Clearance 109 ml/min; Glucose 109 mg/dl (70-99); Phosphorus 3.8 mg/dl (2.5-4.5); Sodium 138 mmol/L (135-145); eGFR > 60.00
--- NOTE | 2023-08-12 08:58 | VATNOTE ---
On rounds. Right arm with vanco in filtrate has resolved.
--- NOTE | 2023-08-12 14:28 | W.PN.HOSP.TC ---
Today's Communication/Plan
-
anticipate d/c tomorrow
Assessment / Plan
Assessment / Plan
pt is a 63 year old female
Sepsis secondary to Left Upper Thigh Cellulitis (with fever)--apprec ID--cont ancef--Left Lower Ext CT, Groin US appreciated cellulitis with associated lymphadenopathy--follow cultures no growth to date and WBC WNL
Essential Hypertension--Continue valsartan--Hold HCTZ given concern sepsis--restart as able
hypokalemia -- replete as needed
Dyslipidemia--Continue atorvastatin
Hypothyroidism--Continue levothyroxine
Depression--Continue citalopram
DVT proph: Lovenox
Code Status: Full Code
Anticipated Discharge: Within 24 hours
Subjective/Interval History
-
Date of Service: August 12, 2023
pt hoping for d/c tomorrow
Objective Data
-
Labs:
Laboratory Results
08/12/23
07:03
WBC 7.6
Hgb 10.6 L
Hct 32.2 L
Plt Count 298 D
Sodium 138
Potassium 4.0
Chloride 105
Carbon Dioxide 24
BUN 12
Creatinine 0.4 L
Glucose 109 H
Calcium 8.7
Vital Signs:
max temp for 24 hours
08/11/23
23:10
Temp 98.8 F
Vital Signs
Temp Pulse Resp BP Pulse Ox
98.0 F 64 18 158/74 100
08/12/23 07:30 08/12/23 07:30 08/12/23 07:30 08/12/23 07:30 08/12/23 07:30
I&O
08/11/23 08/12/23 08/13/23
06:59 06:59 06:59
Intake Total 240 / 240 1560 / 1560
Balance 240 / 240 1560 / 1560
Review of Systems
-
All other systems: Reviewed and negative
Physical Exam
-
General: Well Developed, Well Nourished and No Apparent Distress
HEENT: Normocephalic and Atraumatic
Respiratory: Clear to Auscultation; Negative Wheezes or Rhonchi
Cardiac: Regular Rhythm and S1/S2; Negative Murmur
GI: Soft, Nontender, Nondistended and Normal Bowel Sounds
Musculoskeletal: No Clubbing, No Cyanosis and No Edema
Skin: Other (cellulitis left groin)
Neuro: Awake
Psych: Calm
--- NOTE | 2023-08-12 14:32 | CM ---
Patient seen at bedside with physician. Patient indicated that she hopes for discharge tomorrow. Patient will not need VN per patient and CM will continue to follow for discharge planning needs.
Plan; home with no needs
--- NOTE | 2023-08-12 16:58 | W.PN.ID1 ---
Date of Service
Date of Service: August 12, 2023
Today's Communication
Continue antibiotics.
Assessment / Plan
Left lower extremity cellulitis
Suspected bartonellosis
Fever
Leukocytosis
Focal lymphadenopathy
HTN
Dyslipidemia
Hypothyroidism
Recommendations:
Continue Azithromycin.
Await Bartonella serology.
Continue with cefazolin. If improved tomorrow, may be able to transition to oral Keflex.
Monitor temperature curve.
����������������������������������������������������������
Chief Complaint
-: Cellulitis
Subjective / Review of Systems
Review of Systems: No Fever and No Chills
Vital Signs / Physical Exam
Vital Signs
Vital Signs
Temp Pulse Resp BP Pulse Ox
97.9 F 51 18 158/74 98
08/12/23 15:30 08/12/23 15:30 08/12/23 15:30 08/12/23 07:30 08/12/23 15:30
Physical Exam
Constitutional: No Acute Distress, Comfortable and Non-toxic
Eyes: Sclera Anicteric
Pulmonary: Non Labored
Gastrointestinal: Soft, Non Tender and Non Distended
Skin: Other (Left groin area with erythema, although slightly improved. Central tenderness somewhat decreased.)
Neurological: Awake and Alert
Psychological: Calm
Objective Data
Lab Data
Lab Results
08/12/23 07:03
08/12/23 07:03
Estimated Creat Clear 109 ml/min 08/12/23 07:03
Lactic Acid Cancelled 08/08/23 15:30
Total Bilirubin 1.0 mg/dl (0.2-1.3) 08/08/23 11:46
AST 21 U/L (14-36) 08/08/23 11:46
ALT 21 U/L (0-35) 08/08/23 11:46
Alkaline Phosphatase 99 U/L (38-126) 08/08/23 11:46
Most recent labs reviewed.
Micro Results:
08/08/23 11:46 Blood Culture - Preliminary
Blood/Venous No Growth in 4 days- Final report to follow
08/08/23 11:46 Blood Culture - Preliminary
Blood/Venous No Growth in 4 days- Final report to follow
08/08/23 16:11 MRSA Screen - Final
Nose No Methicillin Resistant Staphylococcus aureus isolated.
Imaging:
08/08/2023 CT left lower extremity: Moderate increased density in the subcutaneous tissues of the anterior medial proximal left thigh and groin area. No focal fluid collection to suggest abscess. At least 3 moderate-sized lymph nodes noted. All
have a normal rim and fatty center. The largest measures 4 cm in maximum dimension.
[2023-08-12] MEDS: LOVENOX 40 MG SC (17:03)
[2023-08-12 23:13] VITALS: BP 147/82
[2023-08-13] MEDS: SYNTHROID 200 MCG PO (06:06)
[2023-08-13 07:23] LABS: Hematocrit 32.1 % (37.0-47.0); Hemoglobin 10.8 g/dL (12.0-16.0); Mean Corp Hgb Conc. 33.6 g/dL (33.0-37.0); Mean Corpuscular Hgb 31.4 pg (27.0-31.0); Mean Corpuscular Volume 93.3 fL (81.0-99.0); Mean Platelet Volume 9.5 fL (7.4-10.4); Platelet Count 320 10^3/uL (130-400); Red Blood Cell Count 3.44 10^6/uL (4.20-5.40); Red Cell Dist. Width 12.6 % (11.5-14.5); White Blood Cell Count 6.7 10^3/uL (4.8-10.8)
[2023-08-13 07:25] VITALS: BP 156/87
[2023-08-13 07:40] LABS: Blood Urea Nitrogen 9 mg/dl (7-17); Carbon Dioxide 25 mmol/L (22-30); Chloride 109 mmol/L (98-107); Estimated Creatinine Clearance 109 ml/min; Glucose 104 mg/dl (70-99); Magnesium 2.1 mg/dl (1.6-2.3); Phosphorus 4.2 mg/dl (2.5-4.5); Potassium 4.5 mmol/L (3.5-5.1); Sodium 139 mmol/L (135-145); eGFR > 60.00
[2023-08-13] MEDS: DIOVAN 160 MG PO (08:15)
[2023-08-13] MEDS: ANCEF 10 IV (08:15)
[2023-08-13] MEDS: ZITHROMAX 500 MG PO (08:16)
[2023-08-13] MEDS: PROTONIX 40 MG PO (08:17)
[2023-08-13] MEDS: LIPITOR 20 MG PO (08:17)
[2023-08-13] MEDS: CELEXA 20 MG PO (08:18)
[2023-08-13 10:47] LABS: Bartonella henselae IgG <1:64; Bartonella henselae IgM < 1:16
--- NOTE | 2023-08-13 13:03 | W.PN.ID1 ---
Date of Service
Date of Service: August 13, 2023
Today's Communication
Continue antibiotics. See below�
Assessment / Plan
Left lower extremity cellulitis
Suspected bartonellosis
- Three cats in the house
Fever
Leukocytosis
Focal lymphadenopathy
HTN
Dyslipidemia
Hypothyroidism
Recommendations:
Patient S/P 5 days of Azithromycin. Can discontinue further administration.
Currently awaiting Bartonella serology, but may take an additional day or so.
Left groin area seems improved clinically. Transition to oral Keflex 500 mg p.o. 4 times daily for an additional 7 days.
Monitor temperature curve.
Patient counseled to monitor for pain and swelling in the area. If further discomfort persists or grows worse, would reimage to assess for underlying collection which may need aspiration.
����������������������������������������������������������
Chief Complaint
-: Cellulitis
Subjective / Review of Systems
Review of Systems: No Fever and No Chills
Vital Signs / Physical Exam
Vital Signs
Vital Signs
Temp Pulse Resp BP Pulse Ox
97.8 F 50 18 156/87 97
08/13/23 07:25 08/13/23 07:25 08/13/23 07:25 08/13/23 07:25 08/13/23 07:25
Physical Exam
Constitutional: No Acute Distress, Comfortable and Non-toxic
Pulmonary: Non Labored
Extremities: Other (Left inguinal area remains erythematous, but decreased from prior. Still with some underlying induration/swelling in the area, but no fluctuance appreciated.)
Neurological: Awake and Alert
Psychological: Calm
Objective Data
Lab Data
Lab Results
08/13/23 06:45
08/13/23 06:45
Estimated Creat Clear 109 ml/min 08/13/23 06:45
Lactic Acid Cancelled 08/08/23 15:30
Total Bilirubin 1.0 mg/dl (0.2-1.3) 08/08/23 11:46
AST 21 U/L (14-36) 08/08/23 11:46
ALT 21 U/L (0-35) 08/08/23 11:46
Alkaline Phosphatase 99 U/L (38-126) 08/08/23 11:46
Most recent labs reviewed.
Micro Results:
08/08/23 11:46 Blood Culture - Final
Blood/Venous No Growth - Final Report
08/08/23 11:46 Blood Culture - Final
Blood/Venous No Growth - Final Report
08/08/23 16:11 MRSA Screen - Final
Nose No Methicillin Resistant Staphylococcus aureus isolated.
Imaging:
08/08/2023 CT left lower extremity: Moderate increased density in the subcutaneous tissues of the anterior medial proximal left thigh and groin area. No focal fluid collection to suggest abscess. At least 3 moderate-sized lymph nodes noted. All
have a normal rim and fatty center. The largest measures 4 cm in maximum dimension.
Care Review
Plan reviewed with: Physician (Hospitalist)
--- NOTE | 2023-08-13 13:52 | W.PN.HOSP.TC ---
Today's Communication/Plan
-
d/c
Assessment / Plan
Assessment / Plan
pt is a 63 year old female
Sepsis secondary to Left Upper Thigh Cellulitis (with fever)--apprec ID--s/p ancef, change to keflex at d/c--Left Lower Ext CT, Groin US appreciated cellulitis with associated lymphadenopathy--follow cultures no growth to date and WBC WNL
Essential Hypertension--Continue valsartan--Hold HCTZ given concern sepsis--restart as able
hypokalemia -- replete as needed
Dyslipidemia--Continue atorvastatin
Hypothyroidism--Continue levothyroxine
Depression--Continue citalopram
DVT proph: Lovenox
Code Status: Full Code
Anticipated Discharge: Today
Subjective/Interval History
-
Date of Service: August 13, 2023
pt ok for d/c
Objective Data
-
Labs:
Laboratory Results
08/13/23
06:45
WBC 6.7
Hgb 10.8 L
Hct 32.1 L
Plt Count 320
Sodium 139
Potassium 4.5
Chloride 109 H
Carbon Dioxide 25
BUN 9
Creatinine 0.4 L
Glucose 104 H
Calcium 9.0
Vital Signs:
max temp for 24 hours
08/12/23
15:30
Temp 97.9 F
Vital Signs
Temp Pulse Resp BP Pulse Ox
97.8 F 50 18 156/87 97
08/13/23 07:25 08/13/23 07:25 08/13/23 07:25 08/13/23 07:25 08/13/23 07:25
I&O
08/12/23 08/13/23 08/14/23
06:59 06:59 06:59
Intake Total 1560 / 1560 1360 / 1360
Balance 1560 / 1560 1360 / 1360
Review of Systems
-
All other systems: Reviewed and negative
Physical Exam
-
General: Well Developed, Well Nourished and No Apparent Distress
HEENT: Normocephalic and Atraumatic
Respiratory: Clear to Auscultation; Negative Wheezes or Rhonchi
Cardiac: Regular Rhythm and S1/S2; Negative Murmur
GI: Soft, Nontender, Nondistended and Normal Bowel Sounds
Musculoskeletal: No Clubbing, No Cyanosis and No Edema
Neuro: Awake and Alert
--- NOTE | 2023-08-13 14:16 | CM ---
Patient seen at bedside with physician. Patient requested 2 notes for return to work and physician completed, tubed to floor. Patient stated that her is coming to transport her home and she does not need VN supports. CM will continue to
follow for discharge planning needs.
Plan; home with no needs
--- NOTE | 2023-08-13 18:35 | W.DCSUMMARY ---
Discharge Summary
Discharge Data
Date of Admission: 08/08/23
Date of Discharge: 08/13/23
-
Pending Results: No
Hospital Course
Primary care physician : Burak Quiroz
Principal Discharge diagnosis : Sepsis secondary to left upper thigh cellulitis
Chronic Discharge diagnosis : Essential hypertension, dyslipidemia, hypothyroidism, depression
Hospital Course : Patient was a 63-year-old female who developed fever and redness of the left upper thigh. She also developed left upper thigh and groin pain. She did not note redness the day prior to admission. The evening prior to admission
she had significant sweats and chills which kept her up most of the night. On the morning of admission she noted redness in the left upper thigh which prompted her to see her primary care provider. She was noted to have a fever of 104 degrees and
was sent to the emergency department for evaluation. She gets about 3-4 episodes of cellulitis a year. Last hospitalization for this however was over 10 years ago. Patient was admitted.
Problem #1: Sepsis secondary to left upper thigh cellulitis. Patient was seen in consultation by infectious disease. She was started on Ancef and eventually changed to Keflex at discharge. The patient did have a left lower extremity CAT scan and
groin ultrasound both of which appreciated cellulitis with associated lymphadenopathy. All cultures were no growth to date and her white count on admission was 12.2 which peaked at 14 and is now down to normal at 6.7. She has been cleared for
discharge by infectious disease at this time.
Problem #2: All other medical issues. These include essential hypertension, dyslipidemia, hypothyroidism, depression. These medical issues were stable during her hospitalization. Medications were continued as able. Of note, valsartan was
continued but the hydrochlorothiazide component was held given the concern for sepsis. This was restarted at discharge.
Patient is stable for discharge home at this time. If there are any questions regarding this dictation or her hospital stay, please not hesitate to call. Our office number is [phone]. She has been provided work note to return to work.
Time for discharge 32 minutes.
Important imaging findings :
CT SCAN LOWER EXTREMITY IMPRESSION:
Findings suggesting moderate cellulitis of the left groin/proximal thigh region. New
Mild left inguinal lymphadenopathy.. New
Mild left hip osteoarthritis. Stable
GROIN US IMPRESSION:
Large but otherwise normal-appearing left groin lymph node. Clinical correlation recommended.
Discharge Plan
-
Patient Disposition: Home (Routine Discharge)
Discharge Diagnosis/Procedures: Sepsis secondary to left upper thigh cellulitis, essential hypertension, hypokalemia, dyslipidemia, hypothyroidism, depression
Condition: Good
Diet: As tolerated and Regular
Activity: As tolerated
Driving Restrictions: As prior to admission
Bathing Restrictions: None
Referrals:
Burak Quiroz MD [Family Provider] - in less than 1 week
Jj Padilla DO [Active] - in two weeks
Prescriptions:
New
cephalexin 500 mg Capsule
500 mg PO QID Qty: 28 0RF
Continued
multivitamin Tablet
1 tab PO DAILY
atorvastatin 20 mg tablet
20 mg PO DAILY
citalopram 20 mg tablet
20 mg PO DAILY
levothyroxine 200 mcg tablet
200 mcg PO DAILY
valsartan-hydrochlorothiazide 160-25 mg tablet
1 tab PO DAILY
Discharge Orders:
Discharge Patient (As Directed); Ordered 08/13/23
Ordered By: Dee Dial
Discharge Date and Time
Discharge Date/Time: 08/13/23 14:27
== END 2023-08-13 14:27 | disposition home or self-care (01) | DRG 872 ==
LOC: 4 WEST ACU 17:31
PROVIDERS: Emergency Medicine; Physician Assistant Medical; ADMITTING PHYSICIAN Internal Medicine; ATTENDING PHYSICIAN Internal Medicine; CONSULT PHYSICIAN Internal Medicine Infectious Disease; EMERGENCY PHYSICIAN Emergency Medicine; FAMILY PHYSICIAN Family Medicine
DX: A41.9 Sepsis, unspecified organism (principal); L03.116 Cellulitis of left lower limb; L03.314 Cellulitis of groin; A44.9 Bartonellosis, unspecified; E03.9 Hypothyroidism, unspecified; E66.9 Obesity, unspecified; E78.00 Pure hypercholesterolemia, unspecified; I10 Essential (primary) hypertension; F32.A Depression, unspecified; R59.0 Localized enlarged lymph nodes; E87.6 Hypokalemia; Z98.84 Bariatric surgery status; Z96.653 Presence of artificial knee joint, bilateral; Z68.33 Body mass index [BMI] 33.0-33.9, adult; Z79.890 Hormone replacement therapy
CPT/HCPCS: 73701; 76882; 80048; 80053; 83605; 83735; 84100; 85025; 85027; 86611; 87040; 87070; 93005; 96374; 97161; 97165; 97530; 99284; Q9967